=== PATIENT | male | born 1995 | race Caucasian/White ===

== ENCOUNTER 2018-01-02 22:44 | Emergency (ER) | payer SELFPAY ==
[2018-01-02 22:48] VITALS: BP 124/67; PULSE 74; RESP 18; TEMP 36.9; O2SAT 98
--- NOTE | 2018-01-02 23:15 | DI.RAD_ITS ---
SYMPTOMS/DIAGNOSIS: RT KNEE PAIN, SWELLING RIGHT KNEE: Three views. No bone or joint abnormality is identified. The soft tissues are unremarkable. IMPRESSION: Negative examination.
--- NOTE | 2018-01-02 23:43 | W.ED.GENAD ---
Discharge Plan Discharge Details Chief Complaint: Orthopedic Clinical Impression: Acute pain of right knee Reason For Visit: KNEE PAIN Primary Care Provider: NONE,NONE ED Provider: Darian Yusuf Disposition Patient Disposition: HOME Condition: Good Home Meds and New Rx's Prescriptions: No Action No Known Home Meds RF: 0 Discharge Instructions Instructions: Knee Pain (ED), RICE Therapy (ED) Additional Instructions: If you notice any worsening of your symptoms, or any new symptoms such as vomiting, diarrhea, fever, chills, shortness of breath, chest pain, numbness, weakness, or fainting , please return immediately to the emergency department for reevaluation. Please follow up with your primary care provider as soon as possible for reassessment and reevaluation. As always, it was a pleasure participating in your medical care today. Medical Decision Making MDM Narrative Medical decision making narrative: This is a pleasant 22-year-old male who presents for evaluation of right-sided knee pain. The patient has had pain in his right knee on and off over the last few weeks, he has been playing softball and this is worsened his pain, as well as the nature of his job which is regular walking moving and lifting. He had notable swelling yesterday, then applied ice, Tylenol and Motrin and had notable improvement of the swelling. He did play softball all night tonight and then had notable pain after this. Physical exam shows no significant joint laxity, signs of notable ligamentous injury however he does have notable tenderness on grinding of the menisci on the Janine test. X-ray appears to be negative on my review, as well as per virtual radiology review. This time I feel that the patient will be safely discharged home. Will recommend continue Tylenol, Motrin, and ice. He will be given another work note for the need of decreased activity. We will set him up with a primary care provider for further evaluation. We discussed red flag for which to return and the patient understands. We will give him a hinged knee brace for home use. I have extensively reviewed the treatment plan and discharge instructions with the patient. I have addressed all patient concerns at this time. The patient was made aware of what symptoms to monitor for that would warrant a return to the emergency department. Discussed the plan with the patient, they demonstrate verbal understanding and agreement with our assessment and plan at this time. This is a 22-year-old male with no past medical history who presents for evaluation of right knee pain. He states that he has been playing softball this season, and he has noticed some pain on and off for the right knee. Yesterday he woke up and he had notable swelling in the right knee. He iced it, took Tylenol and Motrin and the swelling resolved completely. He still has some continued pain in his right knee since then. Today he played a softball match and had notable pain in his knee after the game. He denies any injury, trauma, or deformity. The patient's pain is made worse with movement. It is located in the right lateral aspect in the posterior aspect. It described as an achy sensation, worse with movement. Improved by Tylenol, Motrin and ice. No radiation to the hip or ankle. No radiation up or down the leg. He denies any bruising or any other complaints. He denies any previous surgeries in the area. He denies any pertinent family history. He denies any IV or illicit drug use. He has no other complaints at this time [facility] - General Adult General Date/Time Provider Initiated Documentation: 01/02/18 22:53. Related Data Home Medications Medication Instructions Recorded Confirmed Unknown [No Known Home Meds] 02/13/15 01/02/18 Allergies Allergy/AdvReac Type Severity Reaction Status Date / Time No Known Allergies Allergy Unverified 01/02/18 22:48 General Stated Complaint: Orthopedic ANAHI: 4 Review of Systems Review of Systems 10 point review of systems was performed, pertinent positives and negatives are noted in the history of present illness. [facility] Social History Smoking/Tobacco Use Status: Never Exam Narrative Exam Narrative: 1.Const: Well-nourished, Well-developed, appearing stated age 2.Eyes: PERRL, no conjunctival injection, and symmetrical lids. 3.ENT: Atraumatic external nose and ears. Moist MM. Neck: Symmetric, trachea midline, No thyromegaly. 4.CVS: +S1/S2, No murmurs or gallops. Peripheral pulses 2+ and equal in all extremities. Brisk capillary refill in all extremities. 5.RESP: Unlabored respiratory effort. Clear to auscultation bilaterally. No wheezes rales or rhonchi 6.GI: Soft, Nontender/Nondistended, No hepatosplenomegaly. No guarding or rebound. 7.MSK: Normocephalic/Atraumatic, Extremities w/o deformit. No cyanosis or clubbing, Normal movement of all extremities. The knee is stable to varus, valgus, and anterior drawer stress. No deformity. Patellar grind test is negative. Patient is able to walk without difficulty. No edema or warmth to the joint. No ttp to the patella, tibial plateau, or fibular head. Patient does demonstrate notable tenderness on meniscal testing. No laxity from movements of the knee. There is some worsening of tenderness with lateral stress on the knee, as well as with flexion and extension 8.Skin: Warm, Dry. No rashes or lesions. 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 Sensation grossly intact, no focal neurologic deficits. 10.Psych: (AAO) x3. Appropriate mood and affect Course Vital Signs Temperature 36.9 C 01/02/18 22:48 Pulse 74 01/02/18 22:48 Respiratory Rate 18 01/02/18 22:48 Blood Pressure 124/67 01/02/18 22:48 Pulse Oximetry 98 01/02/18 22:48 Temperature 36.9 C 01/02/18 22:48 Pulse 74 01/02/18 22:48 Respiratory Rate 18 01/02/18 22:48 Blood Pressure 124/67 01/02/18 22:48 Pulse Oximetry 98 01/02/18 22:48
--- NOTE | 2018-01-02 23:55 | DI.VRAD_ITS ---
EXAM: XR Right Knee, 3 Views EXAM DATE/TIME: 01/02/2018 10:55 PM CLINICAL HISTORY: 22 years old, male; Pain; Knee; Right; Patient HX: Swelling and pain TECHNIQUE: XR Right knee 3 views. COMPARISON: No relevant prior studies available. FINDINGS: Bones/joints: Normal. Soft tissues: Normal. IMPRESSION: Normal three-view evaluation of the right knee. Dictated and Authenticated by: González Martin MD. Ordering:SHAW LAW MD
--- NOTE | 2018-01-08 09:08 | CMPROGNOTE_ITS ---
Care Management Progress Note 01/08/18-Pt. seen in ED on 01/02/18 for Right knee pain. Pt needs to establish PCP and have f/u within two weeks. Referral sent to [facility] as Rishi was utilization review specialist.
== END 2018-01-02 23:58 | disposition home or self-care (01) ==
LOC: ER 01-03 00:08
PROVIDERS: Emergency Provider Student in an Organized Health Care Education/Training Program
DX: M25.561 Pain in right knee (principal)
CPT/HCPCS: 29505; 73562; 99283; L1820

== ENCOUNTER 2020-02-17 10:49 | Emergency (ER) | payer SELFPAY ==
[2020-02-17] VITALS (45 sets, daily range): BP systolic 103–126; BP diastolic 53–104; PULSE 58–86; RESP 14–28; TEMP 36.8; O2SAT 98–100
--- NOTE | 2020-02-17 10:45 | RT.EKG_ITS ---
APPROVED REPORT Exam: Resting ECG Patient Location: E HR:62 bpm ECG Measurements Heart Rate 62 AXIS MD 144 P 74 QRSd 76 QRS 77 QT 384 T 40 QTc 389 Conclusion Sinus rhythm...normal P axis, V-rate 60- 99
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
[2020-02-17 11:42] LABS: Abs Immature Grans 0.02 10^3/uL (0.0-0.06); Absolute Basophil Count 0.03 10^3/uL (0.0-0.2); Absolute Eosinophil Count 0.07 10^3/uL (0.0-0.7); Absolute Monocyte Count 0.72 10^3/uL (0.1-0.8); Absolute Neutrophil Count 4.52 10^3/uL (1.2-6.7); Basophils % 0.4; Eosinophils % 0.9; HCT 44.7 % (40.0-50.0); Immature Grans % 0.3; Lymphocytes % 31.8; MCH 26.7 pg (27.0-33.0); MCHC 33.6 % (32.0-36.0); MCV 79.7 fL (80-95); MPV 10.2 fL (8.0-11.0); Monocytes % 9.2; Neutrophils % 57.4; Nucleated RBC 0 %; Platelet Count 271 10^3/uL (130-400); RBC 5.61 10^6/uL (4.36-5.78); RDW 12.6 % (11.8-14.1); RDW-SD 35.7 fL; WBC 7.86 10^3/uL (4.4-10.8)
[2020-02-17] MEDS: Aspirin 81 MG CHEW 324 MG CH (11:48)
[2020-02-17 11:50] LABS: Lipase 73 U/L (73-393)
--- NOTE | 2020-02-17 11:54 | DI.RAD_ITS ---
EXAM: XR CHEST 2V PA LATERAL CLINICAL HISTORY: chest pain TECHNIQUE: 2D digital imaging was performed. COMPARISON: No exams were available for comparison FINDINGS: MEDIASTINUM: Normal. HEART: Normal. PULMONARY VASCULATURE: Normal. LUNGS: Clear. PLEURAL SPACE: No pleural effusion or pneumothorax. BONE:Normal. OTHER FINDINGS:Normal. IMPRESSION: No acute pulmonary findings. DATA REPOSITORY: RADIATION DOSE DELIVERED:
[2020-02-17 12:02] LABS: ALT 16 U/L (16-63); AST 13 U/L (15-37); Albumin 4.2 g/dL (3.4-5.0); Alkaline Phosphatase 79 U/L (46-116); Anion Gap 6.8 mmol/L (3-11); BUN 13 mg/dL (7-18); Bilirubin, Total 0.4 mg/dL (0.2-1.0); CO2 28.2 mmol/L (21.0-32.0); Calcium 9.3 mg/dL (8.5-10.1); Chloride 102 mmol/L (98-107); Glucose 97 mg/dL (74-106); Magnesium 2.2 mg/dL (1.8-2.4); Potassium 3.7 mmol/L (3.5-5.1); Sodium 137 mmol/L (136-145); Total Protein 8.2 g/dL (6.4-8.2); Troponin I < 0.05 ng/mL (<0.06)
[2020-02-17] MEDS: Ketorolac 30 MG/ML VIAL IVP (12:15)
--- NOTE | 2020-02-17 14:30 | RT.EKG_ITS ---
APPROVED REPORT Exam: Resting ECG Patient Location: E HR:60 bpm ECG Measurements Heart Rate 60 AXIS OR 150 P -5 QRSd 85 QRS 77 QT 389 T 55 QTc 390 Conclusion Sinus rhythm...normal P axis, V-rate 60- 99
[2020-02-17 14:53] LABS: Troponin I < 0.05 ng/mL (<0.06)
--- NOTE | 2020-02-17 15:07 | NUR.NOTE ---
refferal to care management for PCP establishment. [facility] ED Nursing Note:
--- NOTE | 2020-02-17 16:06 | NUR.NOTE ---
Referral to Care Management to establish PCPNursing Note:
--- NOTE | 2020-02-18 10:04 | PDOC.ERCMPRO ---
- If Service Date Differs Date of service: 02/18/20 Time of Service: 10:04 Care Management Progress Note Noel is seen in the ED on 02/17/2020 for chest pain. At the request of ED provider, CM coordinates referral to Dr. Rebeka Macario, on-call provider, of [facility] to assist Noel in obtaining a follow up appointment and in establishing care with a PCP. Noel is also referred to the [facility] at [facility] for assistance exploring health insurance options.
== END 2020-02-17 15:18 | disposition home or self-care (01) ==
PROVIDERS: Emergency Provider Physician Assistant
DX: R07.81 Pleurodynia (principal); F17.290 Nicotine dependence, other tobacco product, uncomplicated
CPT/HCPCS: 36415; 80053; 83690; 93005; 96374; 99285; 71046; 83735; 84484; 85025; 93010; 99284; J1885

== ENCOUNTER 2021-11-29 12:50 | Emergency (ER) | payer SELFPAY ==
[2021-11-29 12:56] VITALS: BP 118/59; PULSE 63; RESP 14; TEMP 36.9; O2SAT 99
--- NOTE | 2021-11-29 13:15 | DI.RAD_ITS ---
Exam(s) XR FOOT RT COMPLETE EXAM: XR FOOT RT COMPLETE CLINICAL HISTORY: trauma, right foot pain TECHNIQUE: COMPARISON: No exams were available for comparison FINDINGS: Three views were obtained. There is no evidence of acute fracture or dislocation. IMPRESSION: RADIATION DOSE DELIVERED: Total DLP
--- NOTE | 2021-11-29 13:39 | PDOC.ERCMPRO ---
- If Service Date Differs Date of service: 11/29/21 Time of Service: 13:39 Care Management Progress Note YSBIRT Screen: negative. Pt reports no substance use or mental health symptoms.
--- NOTE | 2021-11-29 13:57 | ED.GENADUL_ITS ---
Discharge Plan Disposition Patient Disposition: HOME Condition: Good Discharge Details Clinical Impression: Injury of foot, right Primary Care Provider: None,None ED Provider: Alice Santos Home Meds and New Rx's Prescriptions: No Action No Known Home Meds Discharge Instructions Instructions: Foot Contusion (ED), Foot Sprain (ED) Additional Instructions: Please return immediately to the emergency department if you develop any new or worsening symptoms, if your condition does not improve as expected, or if you become otherwise concerned. It is extremely important that you call soon as possible to make an appointment to be seen in follow-up for this visit by your primary care doctor. Yes Stand Alone Forms: Work Release Discharge Data Discharge Date/Time-TO BE ENTERED AT DEPARTURE: 11/29/21 14:48 Medical Decision Making Noel Adame is a 26-year-old man without reported medical problems presenting to emergency department with foot pain. Patient reports he was playing softball 2 days ago on 11/27/2021 when he noticed pain over the top of his right foot. He does not recall an inciting event/injury. Patient reports that yesterday he noticed that over the top of his right foot in the area of pain there was a bump that was slightly reddish, no skin wound or drainage, no other redness. Patient reports that pain over the top of his foot has persisted into today, however bump has now resolved and he reports no skin changes. He denies any other pain, fever, vomiting, diarrhea, cough, shortness of breath, numbness, weakness, rash. Patient reports that pain is worse with weightbearing or pressure on the top of his foot. He states that he is able to walk. 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 On exam patient is very well and nontoxic-appearing. There is focal tenderness palpation of the right dorsal midfoot without erythema, edema, ecchymosis, crepitus, skin wound, deformity. There is no other tenderness of the foot or ankle, full range of motion of the toes and ankle, toes/distal foot neurovascular intact. Concern for soft tissue injury versus bony pathology, other. Exam/history at this time not consistent with abscess, cellulitis, osteomyelitis, sepsis, acute emergent pathology of the ankle or leg. Plan for foot x-rays. Xrays negative. Plan for crutches with weight bearing as tolerated, outpt f/u. I had a lengthy discussion with the Patient regarding return to emergency department precautions, home care, and importance of outpatient follow-up. P atient verbalized understanding of the plan and was amenable. All questions were answered. Medical Records Medical records reviewed: Yes I reviewed the patient's medical records. Imaging Data Radiologic Study: Attestation: I personally reviewed and interpreted this imaging study as follows: Radiologist's impression: EXAM:? XR FOOT RT COMPLETE CLINICAL HISTORY:? trauma, right foot pain TECHNIQUE:? COMPARISON:? No exams were available for comparison FINDINGS: Three views were obtained.? There is no evidence of acute fracture or dislocation. HPI General Mode of arrival: ambulatory . Date/Time Provider Initiated Documentation: 11/29/21 13:11 . Limitations to Documentation: no limitations . Information obtained by: patient, RN notes reviewed and old records reviewed . HPI Narrative: Noel Adame is a 26-year-old man without reported medical problems presenting to emergency department with foot pain. Patient reports he was playing softball 2 days ago on 11/27/2021 when he noticed pain over the top of his right foot. He does not recall an inciting event/injury. Patient reports that yesterday he noticed that over the top of his right foot in the area of pain there was a bump that was slightly reddish, no skin wound or drainage, no other redness. Patient reports that pain over the top of his foot has persisted into today, however bump has now resolved and he reports no skin changes. He denies any other pain, fever, vomiting, diarrhea, cough, shortness of breath, numbness, weakness, rash. Patient reports that pain is worse with weightbearing or pressure on the top of his foot. He states that he is able to walk. 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 Related Data Home Medications Medication Instructions Recorded Confirmed Unknown [No Known Home Meds] 02/13/15 11/29/21 Allergies Allergy/AdvReac Type Severity Reaction Status Date / Time No Known Allergies Allergy Unverified 11/29/21 12:59 General Stated Complaint: Orthopedic ANAHI: 4 Review of Systems Narrative: Constitutional: denies fevers Eyes: denies eye pain ENT: denies ear pain, dental pain, sore throat Cardiovascular: denies chest pain, edema Respiratory: denies SOB, cough GI: denies abdominal pain, vomiting, diarrhea : denies flank pain MSK: denies back pain, neck pain, arthralgias, reports right foot pain Skin: denies rash Neuro: denies headaches, numbness, weakness PFSH All Active Problems (Updated 11/29/21 @ 14:38 by Alice Santos MD) Injury of foot, right (Acute) Social History Smoking/Tobacco Use Status: Former Tobacco Use Smoking risk assessment performed?: Yes Alcohol Intake: current Alcohol Intake frequency: holidays/special occasions only Drug use: Never Substance use type: does not use Details: quit smoking 7 months ago Do you feel safe at home: Yes Do you feel safe in your relationship?: Yes Exam Narrative Exam Narrative: Constitutional: well and [id number], pleasant, conversing normally HENT: head atraumatic/normocephalic/normal inspection, mucous membranes moist Eyes: conjunctiva normal, sclera normal, pupils 3mm b/l Neck: no stridor, normal ROM, trachea midline Resp: normal work of breathing, speaking in full sentences Cardio: normal rate, normal rhythm Skin: warm, dry, normal color, no rash Neuro: alert, not altered, grossly non-focal, normal tone Ext: no edema, focal right midfoot tender to palpation over dorsal aspect, no erythema, no wound, no overlying skin changes, no crepitus, no tenderness palpation of the medial or lateral malleolus, no heel tenderness to palpation, no tenderness to palpation of the plantar surface of the foot, no tenderness to palpation of the MTP joints, full range of motion of the toes, full range of motion of the ankle, brisk cap refill of the toes, distal foot and toes with sensation intact, DP pulse intact Psych: normal mood, normal affect, normal behavior Course Vital Signs Vital signs: Vital Signs Temperature 36.9 C 11/29/21 12:56 Pulse 63 11/29/21 12:56 Respiratory Rate 14 11/29/21 12:56 Blood Pressure 118/59 L 11/29/21 12:56 Pulse Oximetry 99 11/29/21 12:56 Temperature 36.9 C 11/29/21 12:56 Temperature Source Temporal Artery Scan 11/29/21 12:56 Pulse 63 11/29/21 12:56 Respiratory Rate 14 11/29/21 12:56 Respiratory Effort Non-Labored 11/29/21 12:59 Blood Pressure 118/59 L 11/29/21 12:56 Blood Pressure Position Sitting 11/29/21 12:56 Pulse Oximetry 99 11/29/21 12:56 Oxygen Delivery Method Room Air 11/29/21 12:56 Oxygen Flow Rate 0 11/29/21 12:56 Pain Level 7 11/29/21 12:56
== END 2021-11-29 14:48 | disposition home or self-care (01) ==
PROVIDERS: Emergency Provider Student in an Organized Health Care Education/Training Program
DX: S99.821A Other specified injuries of right foot, initial encounter (principal); X58.XXXA Exposure to other specified factors, initial encounter
CPT/HCPCS: 99283; 73630